=== PATIENT | male | born 1975 | race African-American/Black ===

== ENCOUNTER 2021-06-30 14:25 | Emergency (ER) | payer SELFPAY ==
[~2021-06-30] VITALS: Ht 185.4 cm; Wt 87.1 kg
[2021-06-30 14:38] VITALS: BP 117/73
--- NOTE | 2021-06-30 14:44 | NUR ---
TENT2
--- NOTE | 2021-06-30 15:36 | NUR ---
PT TAKEN TO BED 6.
--- NOTE | 2021-06-30 15:41 | NUR ---
46/M presents to ED with c/o headache for 2 days. Patient states he has had intermittent headaches worsening over the last 2 days. Reports taking Advil with no relief, states 10/10 throbbing pain, not provoked by noise or light. Patient states episodes of blurred vision when pain is occurring, denies dizziness or blurred vision at this time, speaking in clear full sentences.
[2021-06-30] MEDS ORDERED: HYDROcodone/APAP 5/325 MG 1 TAB TAB PO ONE (16:00)
[2021-06-30] MEDS ORDERED: NACL 0.9% 1,000 ML IV ONE (16:05)
[2021-06-30] MEDS ORDERED: ONDANSETRON 4 MG/2 ML VIAL IVP ONE (16:05)
--- NOTE | 2021-06-30 16:10 | NUR ---
Pt taken to CT via w/c.
[2021-06-30] MEDS ORDERED: IBUP-2213 PO (17:06)
[2021-06-30 17:41] VITALS: BP 122/76
== END 2021-06-30 17:42 | disposition home or self-care (01) ==
LOC: MED 14:25
DX: R51.9 Headache, unspecified (principal); R42 Dizziness and giddiness; R11.0 Nausea; F17.210 Nicotine dependence, cigarettes, uncomplicated; F12.90 Cannabis use, unspecified, uncomplicated; Z79.899 Other long term (current) drug therapy
CPT/HCPCS: 70450; 96361; 96374; 99284; J2405; J7030